=== PATIENT | female | born 1935 | race Caucasian/White ===

== ENCOUNTER 2019-03-22 21:47 | Emergency (ER) | payer OTHER, MEDICARE ==
[2019-03-22] MEDS ORDERED: ACETAMINOPHEN 325 MG TABLET (FP) PO ONE (21:52)
[2019-03-22] MEDS ORDERED: ACETAMINOPHEN 325 MG TABLET (FP) ONE (21:57)
[2019-03-22 22:00] VITALS: BP 177/96; PULSE 98; TEMP 97.9; BMI 23.3
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
== END 2019-03-22 23:10 | disposition home or self-care (01) ==
LOC: FER 21:47
DX: S92.514A Nondisplaced fracture of proximal phalanx of right lesser toe(s), initial encounter for closed fracture (principal); V03.90XA Pedestrian on foot injured in collision with car, pick-up truck or van, unspecified whether traffic or nontraffic accident, initial encounter; Y93.89 Activity, other specified; Y92.410 Unspecified street and highway as the place of occurrence of the external cause; Z88.8 Allergy status to other drugs, medicaments and biological substances
CPT/HCPCS: 73630-TC-RT-FY; 99281-25